=== PATIENT | female | born 1970 | race Caucasian/White ===

== ENCOUNTER 2018-04-21 14:56 | Emergency (ER) | payer SELFPAY ==
[2018-04-21 15:42] LABS: Absolute Monocytes 0.6 K/uL (0.1-1.3); Basophils % 1.2 % (0-1.3); Eosinophils % 2.7 % (0-4.4); Hematocrit 51.4 % (36.0-45.0); Lymphocytes % 20.1 % (15.3-44.8); MCH 28.6 pg (27.0-35.0); MPV 10.1 fL (7.6-11.3); Monocytes % 6.1 % (3.3-12.3); RBC Red Blood Cell Count 5.91 M/uL (3.86-4.86)
[2018-04-21 15:52] LABS: Potassium 3.9 mEq/L (3.6-5.0)
[2018-04-21] MEDS ORDERED: METOPROLOL TARTRATE 5 MG/5 ML INJ IV ONE (15:55)
[2018-04-21 15:58] LABS: Albumin 4.1 g/dL (3.2-5.5); Bilirubin Direct 0.1 mg/dL (0-0.2); Bilirubin Total 0.3 mg/dL (0.3-1.2); Magnesium 1.9 mg/dL (1.8-2.5); Protein, Total 7.6 g/dL (6.0-8.3)
[2018-04-21 16:08] LABS: Protime INR 0.91
[2018-04-21 19:05] LABS: Urine Blood NEGATIVE (NEG); Urine Glucose NEGATIVE (NEG); Urine Protein TRACE (NEG); Urine pH 5.5 (5.0-7.0)
--- NOTE | 2018-04-21 19:22 | EDPHYS ---
Physician Documentation [facility] Name: Leslye Kelley Age: 47 yrs Sex: Female : 1970 Arrival Date: 04/21/2018 Time: 15:02 Bed 2 Private MD: ED Physician Terry Kelly RIBBON WINDER: 04/21 15:13 LMP N/A - Hysterectomy tw2 Historical: - Allergies: 15:12 Phenergan; tw2 - Home Meds: 15:12 Contrave 8-90 mg oral TbER 2 tabs 2 times per day [Active]; tw2 - PMHx: 15:12 Diabetes - NIDDM; Hypertension; tw2 - PSHx: 15:12 cervix; Hysterectomy; Appendectomy; Cholecystectomy; colon; tw2 - Immunization history:: Adult Immunizations up to date. - Social history:: Smoking status: Patient uses tobacco products, smokes one pack cigarettes per day. - Ebola Screening: : Patient denies travel to an Ebola-affected area in the 21 days before illness onset. Vital Signs: 15:08 BP 201 / 99; Pulse 83; Resp 17; Temp 97.4(TE); Pulse Ox 91% on R/A; Weight 86.18 kg tw2 (R); Height 5 ft. 0 in. (152.40 cm); Pain 10/10; 15:15 BP 173 / 87; Pulse 68; Resp 17; Pulse Ox 96% on 2 lpm NC; tw2 15:26 BP 169 / 87; Pulse 77; Resp 16; Pulse Ox 97% on 2 lpm NC; tw2 15:30 BP 164 / 93; Pulse 72; Resp 14; Pulse Ox 96% on 2 lpm NC; tw2 15:45 BP 123 / 100; Pulse 74; Resp 17; Pulse Ox 96% on R/A; tw2 16:02 BP 163 / 81; Pulse 67; Resp 21; Pulse Ox 95% on 2 lpm NC; tw2 16:06 BP 154 / 75; Pulse 70; Resp 16; Pulse Ox 96% on R/A; tw2 16:27 BP 140 / 86; Pulse 73; Resp 24; Pulse Ox 95% on 2 lpm NC; tw2 17:30 BP 143 / 84; Pulse 73; Resp 16; Pulse Ox 96% on R/A; tw2 18:41 BP 162 / 82; Pulse 77; Resp 21; Pulse Ox 96% on R/A; tw2 19:04 BP 156 / 92; Pulse 72; Resp 18; Pulse Ox 92% ; aa1 15:08 Body Mass Index 37.11 (86.18 kg, 152.40 cm) tw2 15:08 pt placed on 2L nc at 2 L will continue to monitor, pt at 96% at this time. tw2 15:15 provider notified of VS at this time, HOLD Lopressor per Dr. Kelly, will continue to tw2 monitor MDM: 15:06 Patient medically screened. 04/21 15:11 Order name: Basic Metabolic Panel; Complete Time: 16:09 04/21 15:11 Order name: CBC with Diff; Complete Time: 16:09 04/21 15:11 Order name: LFT's; Complete Time: 16:09 04/21 15:11 Order name: Magnesium; Complete Time: 16:09 04/21 15:11 Order name: PT-INR; Complete Time: 16:09 04/21 15:11 Order name: Troponin (emerg Dept Use Only); Complete Time: 16:09 04/21 15:11 Order name: XRAY Chest (1 view) 04/21 15:11 Order name: EKG; Complete Time: 15:12 04/21 15:11 Order name: D-Dimer; Complete Time: 16:09 04/21 17:49 Order name: EKG Electrocardiogram [facility] 04/21 18:11 Order name: Troponin (emerg Dept Use Only); Complete Time: 19:20 04/21 18:41 Order name: Urine Dipstick--Ancillary (enter results); Complete Time: 19:20 04/21 18:41 Order name: Urine --Ancillary (enter results); Complete Time: 19:20 04/21 15:11 Order name: Cardiac monitoring; Complete Time: 15:14 04/21 15:11 Order name: EKG - Nurse/Tech; Complete Time: 15:14 04/21 15:11 Order name: IV Saline Lock; Complete Time: 15:14 04/21 15:11 Order name: Labs collected and sent; Complete Time: 15:14 04/21 15:11 Order name: O2 Per Protocol; Complete Time: 15:14 04/21 15:11 Order name: O2 Sat Monitoring; Complete Time: 15:14 04/21 15:11 Order name: Urine Dipstick-Ancillary (obtain specimen); Complete Time: 18:40 Administered Medications: 15:45 Drug: Lopressor 5 mg Route: IVP; Site: right antecubital; tw2 16:06 Follow up: BP 154 / 75; Pulse 70 bpm; Resp 16 bpm; Pulse Ox 96% RA; Response: No tw2 adverse reaction; Blood pressure is lowered Disposition: 04/21/18 19:21 Discharged to Home. Impression: Chest pain, unspecified. - Condition is Stable. - Discharge Instructions: Nonspecific Chest Pain, Managing Your High Blood Pressure. - Medication Reconciliation Form, Thank You Letter, Antibiotic Education, Prescription Opioid Use form. - Follow up: Private Physician; When: 2 - 3 days; Reason: Re-evaluation by your physician. Signatures: Dispatcher [employer] EDOlga Mccormick RN RN tw2 Terry Kelly MD MD Zane Roche RN RN mg2 Corrections: (The following items were deleted from the chart) 19:31 19:21 04/21/2018 19:21 Discharged to Home. Impression: Chest pain, unspecified. mg2 Condition is Stable. Forms are Medication Reconciliation Form, Thank You Letter, Antibiotic Education, Prescription Opioid Use. Follow up: Private Physician; When: 2 - 3 days; Reason: Re-evaluation by your physician.
--- NOTE | 2018-04-21 19:22 | ER ---
Nurse's Notes [facility] Name: Leslye Kelley Age: 47 yrs Sex: Female : 1970 Arrival Date: 04/21/2018 Time: 15:02 Bed 2 Private MD: Diagnosis: Chest pain, unspecified Presentation: 04/21 15:06 Presenting complaint: Patient states: I went to take a nap today, i always take a nap tw2 and the chest pain started about an hour ago and my left arm feels heavy. Presenting complaint: Patient states: i did take 2 aspirin. Transition of care: patient was not received from another setting of care. Onset of symptoms was April 21, 2018. Risk Assessment: Do you want to hurt yourself or someone else? Patient reports no desire to harm self or others. Initial Sepsis Screen: Does the patient meet any 2 criteria? No. Patient's initial sepsis screen is negative. Does the patient have a suspected source of infection? No. Patient's initial sepsis screen is negative. Care prior to arrival: None. 15:06 Method Of Arrival: Wheelchair tw2 15:06 Acuity: ANDRZEJ 3 tw2 SIZE STAMPER: 15:13 LMP N/A - Hysterectomy tw2 Historical: - Allergies: 15:12 Phenergan; tw2 - Home Meds: 15:12 Contrave 8-90 mg oral TbER 2 tabs 2 times per day [Active]; tw2 - PMHx: 15:12 Diabetes - NIDDM; Hypertension; tw2 - PSHx: 15:12 cervix; Hysterectomy; Appendectomy; Cholecystectomy; colon; tw2 20:51 Angioplasty; gs - Immunization history:: Adult Immunizations up to date. - Social history:: Smoking status: Patient uses tobacco products, smokes one pack cigarettes per day. - Ebola Screening: : Patient denies travel to an Ebola-affected area in the 21 days before illness onset. Screenin:13 Abuse screen: Denies threats or abuse. Nutritional screening: No deficits noted. tw2 Tuberculosis screening: No symptoms or risk factors identified. Fall Risk None identified. Assessment: 15:12 General: Appears uncomfortable, obese, Behavior is anxious. Pain: Complains of pain in tw2 chest Pain radiates to left arm. Neuro: Level of Consciousness is awake, alert, obeys commands, Oriented to person, place, time, situation. Cardiovascular: Reports chest pain, Heart tones S1 S2 Capillary refill < 3 seconds Patient's skin is warm and dry. Respiratory: Airway is patent Respiratory effort is even, unlabored, Respiratory pattern is regular, symmetrical, Breath sounds are clear bilaterally. GI: Abdomen is round non-distended, obese, Bowel sounds present X 4 quads. : No signs and/or symptoms were reported regarding the genitourinary system. EENT: No signs and/or symptoms were reported regarding the EENT system. Derm: Skin is intact, is healthy with good turgor, Skin temperature is warm. Musculoskeletal: Range of motion: intact in all extremities. 15:45 Reassessment: per provider Dr. Kelly, can give Lopressor at this time. tw2 16:06 Reassessment: Patient appears in no apparent distress at this time. Patient and/or tw2 family updated on plan of care and expected duration. Pain level reassessed. Patient is alert, oriented x 3, equal unlabored respirations, skin warm/dry/pink. 17:40 Reassessment: Patient appears in no apparent distress at this time. Patient and/or tw2 family updated on plan of care and expected duration. Pain level reassessed. Patient is alert, oriented x 3, equal unlabored respirations, skin warm/dry/pink. 18:42 Reassessment: Patient appears in no apparent distress at this time. Patient and/or tw2 family updated on plan of care and expected duration. Pain level reassessed. Patient is alert, oriented x 3, equal unlabored respirations, skin warm/dry/pink. Vital Signs: 15:08 BP 201 / 99; Pulse 83; Resp 17; Temp 97.4(TE); Pulse Ox 91% on R/A; Weight 86.18 kg tw2 (R); Height 5 ft. 0 in. (152.40 cm); Pain 10/10; 15:15 BP 173 / 87; Pulse 68; Resp 17; Pulse Ox 96% on 2 lpm NC; tw2 15:26 BP 169 / 87; Pulse 77; Resp 16; Pulse Ox 97% on 2 lpm NC; tw2 15:30 BP 164 / 93; Pulse 72; Resp 14; Pulse Ox 96% on 2 lpm NC; tw2 15:45 BP 123 / 100; Pulse 74; Resp 17; Pulse Ox 96% on R/A; tw2 16:02 BP 163 / 81; Pulse 67; Resp 21; Pulse Ox 95% on 2 lpm NC; tw2 16:06 BP 154 / 75; Pulse 70; Resp 16; Pulse Ox 96% on R/A; tw2 16:27 BP 140 / 86; Pulse 73; Resp 24; Pulse Ox 95% on 2 lpm NC; tw2 17:30 BP 143 / 84; Pulse 73; Resp 16; Pulse Ox 96% on R/A; tw2 18:41 BP 162 / 82; Pulse 77; Resp 21; Pulse Ox 96% on R/A; tw2 19:04 BP 156 / 92; Pulse 72; Resp 18; Pulse Ox 92% ; aa1 15:08 Body Mass Index 37.11 (86.18 kg, 152.40 cm) tw2 15:08 pt placed on 2L nc at 2 L will continue to monitor, pt at 96% at this time. tw2 15:15 provider notified of VS at this time, HOLD Lopressor per Dr. Kelly, will continue to tw2 monitor ED Course: 15:02 Patient arrived in ED. bd 15:02 Olga Stubsb, RN is Primary Nurse. tw2 15:06 Terry Kelly MD is Attending Physician. gs 15:08 Triage completed. tw2 15:09 Arm band placed on. tw2 15:09 Bed in low position. Adult w/ patient. food processing plant manager on. Pulse ox on. NIBP on. Warm tw2 blanket given. 15:14 No provider procedures requiring assistance completed. Inserted saline lock: 20 gauge tw2 in right antecubital area, using aseptic technique. ,using aseptic technique. per Emiliano Brumfield Blood collected. 15:22 Initial lab(s) drawn, by me, held in ED. Inserted saline lock: 20 gauge antecubital mh5 area, using aseptic technique. Blood collected. 15:23 Patient has correct armband on for positive identification. Placed in gown. Call light mh5 in reach. Side rails up X 1. Side rails up X2. Adult w/ patient. Warm blanket given. food processing plant manager on. Pulse ox on. NIBP on. 15:38 XRAY Chest (1 view) In Process Unspecified. EDMS 15:42 X-ray completed. Portable x-ray completed in exam room. Patient tolerated procedure bb2 well. 17:15 EKG done, by medical technologist clinical. reviewed by Terry Kelyl MD Repeat EKG. at1 18:40 Troponin (emerg Dept Use Only) Sent. tw2 19:00 Report given to GERARDO Mitchell. tw2 19:30 IV discontinued, intact, bleeding controlled, No redness/swelling at site. Pressure mg2 dressing applied. Administered Medications: 15:45 Drug: Lopressor 5 mg Route: IVP; Site: right antecubital; tw2 16:06 Follow up: BP 154 / 75; Pulse 70 bpm; Resp 16 bpm; Pulse Ox 96% RA; Response: No tw2 adverse reaction; Blood pressure is lowered Outcome: 19:21 Discharge ordered by MD. gs 19:30 Discharged to home ambulatory, with family. mg2 19:30 Condition: stable 19:30 Discharge instructions given to patient, family, Instructed on discharge instructions, follow up and referral plans. Demonstrated understanding of instructions, follow-up care. 19:31 Patient left the ED. mg2 Signatures: Dispatcher [employer] EDMS Griselda Randolph Alissa, RN RN aa1 Michelle nickerson, sander wooden pencils EKG Tat1 Olga Stubbs RN RN tw2 Belinda Mckeon 5 Terry Kelly MD MD [facility] [place] [id number] Zane Roche RN RN mg2 Corrections: (The following items were deleted from the chart) 15:26 15:15 BP 173 / 87; Pulse 68bpm; Resp 17bpm; Pulse Ox 96% 2 lpm Nasal Cannula; tw2 tw2
--- NOTE | 2018-04-21 19:41 | RAD REPORT ---
EXAM DESCRIPTION: Luiz Single View04/21/2018 3:45 pm CLINICAL HISTORY: Chest pain COMPARISON: none FINDINGS: The lungs appear clear of acute infiltrate. The heart is borderline enlarged IMPRESSION: No acute abnormalities displayed
[2018-04-21 20:44] VITALS: TEMP 97.4
[2018-04-21 20:56] VITALS: BP 156/92; O2SAT 92
--- NOTE | 2018-04-22 07:41 | EKG ---
Test Date: 2018-04-21 Test Time: 17:12:22 Instructor Bridge: ROSELINE MEASUREMENT RESULTS: Intervals: Rate: 64 NV: 154 QRSD: 92 QT: 426 QTc: 439 [place]: P: 51 NV: 154 QRS: 86 T: 54 INTERPRETIVE STATEMENTS: Normal sinus rhythm Normal ECG Compared to ECG 04/21/2018 15:03:04 Sinus arrhythmia no longer present Electronically Signed On 04-22-18 07:40:38 CDT by Clarke Mendez
--- NOTE | 2018-04-22 07:43 | EKG ---
Test Date: 2018-04-21 Test Time: 15:03:04 Director Of Government Sales: ROSELINE MEASUREMENT RESULTS: Intervals: Rate: 77 [place]: 140 QRSD: 94 QT: 388 QTc: 439 [place]: P: 45 [place]: 140 QRS: 86 T: 50 INTERPRETIVE STATEMENTS: Normal sinus rhythm with sinus arrhythmia Normal ECG Compared to ECG 11/03/2017 12:36:53 Myocardial infarct finding no longer present Electronically Signed On 04-22-18 07:42:01 CDT by Clarke Mendez
== END 2018-04-21 19:31 | disposition home or self-care (01) ==
LOC: ER 14:56
DX: R07.9 Chest pain, unspecified (principal); E11.9 Type 2 diabetes mellitus without complications; I10 Essential (primary) hypertension; F17.210 Nicotine dependence, cigarettes, uncomplicated
CPT/HCPCS: 36415; 71045; 80048; 80076; 81003; 81025; 83735; 84484; 85025; 85379; 85610; 93005; 96374; 99285

== ENCOUNTER 2018-09-11 11:45 | Emergency (ER) | payer SELFPAY ==
--- NOTE | 2018-09-11 11:57 | ER ---
Nurse's Notes [facility] Name: Leslye Kelley Age: 47 yrs Sex: Female : 1970 Arrival Date: 09/11/2018 Time: 11:47 Bed 5 Private MD: Diagnosis: Zoster [herpes zoster] Presentation: 09/11 11:53 Presenting complaint: Patient states: Pain to left shoulder and upper back for 2 weeks aj and vesicular rash to left shoulder for 3 days. Transition of care: patient was not received from another setting of care. Onset of symptoms was August 27, 2018. Risk Assessment: Do you want to hurt yourself or someone else? Patient reports no desire to harm self or others. Initial Sepsis Screen: Does the patient meet any 2 criteria? No. Patient's initial sepsis screen is negative. Does the patient have a suspected source of infection? No. Patient's initial sepsis screen is negative. Care prior to arrival: None. 11:53 Method Of Arrival: Ambulatory aj 11:53 Acuity: ANDRZEJ 2 aj Triage Assessment: 11:55 General: Appears in no apparent distress. uncomfortable, Behavior is calm, cooperative, aj appropriate for age. Pain: Complains of pain in left scapular area, left subscapular area and left mid back. Neuro: Level of Consciousness is awake, alert, obeys commands, Oriented to person, place, time, situation, Appropriate for age. Respiratory: Airway is patent Respiratory effort is even, unlabored, Respiratory pattern is regular, symmetrical. Derm: Skin is intact, is healthy with good turgor, Skin is pink, warm \\T\\ dry. normal, Rash noted that is vesicular, on left scapular area. DIRECTOR CALL: 11:55 LMP N/A - Hysterectomy aj Historical: - Allergies: 11:55 Phenergan; aj 11:55 tramadol; aj - Home Meds: 11:55 None [Active]; aj - PMHx: 11:55 Hypertension; Diabetes - NIDDM; aj - PSHx: 11:55 cervix; Hysterectomy; Appendectomy; Cholecystectomy; colon; Angioplasty; aj - Immunization history:: Adult Immunizations up to date. - Social history:: Smoking status: Patient/guardian denies using tobacco. - Ebola Screening: : Patient negative for fever greater than or equal to 101.5 degrees Fahrenheit, and additional compatible Ebola Virus Disease symptoms Patient denies exposure to infectious person Patient denies travel to an Ebola-affected area in the 21 days before illness onset No symptoms or risks identified at this time. Screenin:07 Abuse screen: Denies threats or abuse. Nutritional screening: No deficits noted. tw2 Tuberculosis screening: No symptoms or risk factors identified. Fall Risk None identified. Assessment: 12:00 General: Appears in no apparent distress. Behavior is calm, cooperative. Neuro: Level tw2 of Consciousness is awake, alert, obeys commands, Oriented to person, place, time, situation. Cardiovascular: Denies chest pain, shortness of breath, Heart tones S1 S2 Capillary refill < 3 seconds. Respiratory: Airway is patent Respiratory effort is even, unlabored, Respiratory pattern is regular, symmetrical, Breath sounds are clear bilaterally. GI: No signs and/or symptoms were reported involving the gastrointestinal system. : No signs and/or symptoms were reported regarding the genitourinary system. EENT: No signs and/or symptoms were reported regarding the EENT system. Derm: Reports pain "i have pain from the sores on my back". Musculoskeletal: Range of motion: intact in all extremities. 12:14 Reassessment: Patient appears in no apparent distress at this time. No changes from tw2 previously documented assessment. Patient and/or family updated on plan of care and expected duration. Pain level reassessed. Patient is alert, oriented x 3, equal unlabored respirations, skin warm/dry/pink. Vital Signs: 11:55 BP 190 / 100; Pulse 103; Resp 17; Temp 98.5; Pulse Ox 95% on R/A; Weight 87.54 kg; aj Height 5 ft. 0 in. (152.40 cm); 12:07 BP 160 / 88; Pulse 94; Resp 17; Pulse Ox 96% on R/A; tw2 11:55 Body Mass Index 37.69 (87.54 kg, 152.40 cm) aj ED Course: 11:47 Patient arrived in ED. aj 11:48 Lala Abad FNP-C is [facility]. snw 11:48 Toi Miller MD is Attending Physician. snw 11:50 Bed in low position. Call light in reach. Pulse ox on. NIBP on. tw2 11:54 Triage completed. aj 11:55 Arm band placed on left wrist. Patient placed in an exam room. noel 11:57 Olga Stubbs, RN is Primary Nurse. tw2 12:14 No provider procedures requiring assistance completed. Patient did not have IV access tw2 during this emergency room visit. Administered Medications: 12:00 Drug: predniSONE 40 mg Route: PO; tw2 12:00 Drug: cloNIDine 0.1 mg Route: PO; tw2 12:00 Drug: Pepcid 20 mg Route: PO; tw2 Outcome: 11:56 Discharge ordered by . alisia 12:14 Discharged to home ambulatory. tw2 12:14 Condition: stable 12:14 Discharge instructions given to patient, Instructed on discharge instructions, follow up and referral plans. no drinking with medication, no driving heavy equipment, medication usage, Demonstrated understanding of instructions, follow-up care, medications, Prescriptions given X 3. 12:15 Patient left the ED. tw2 Signatures: Michelle Garza, RN RN Lala Jaquez, RADIO TELEVISION TECHNICAL DIRECTOR-C RADIO TELEVISION TECHNICAL DIRECTOR-Csnw Olga Stubbs, RN RN tw2
--- NOTE | 2018-09-11 11:57 | EDPHYS ---
Physician Documentation [facility] Name: Leslye Kelley Age: 47 yrs Sex: Female : 1970 Arrival Date: 09/11/2018 Time: 11:47 Bed 5 Private MD: ED Physician Toi Miller HPI: 09/11 12:17 This 47 yrs old Female presents to ER via Ambulatory with complaints of pain snw toleft shoulder and upper back. 12:17 The patient's rash thought to be caused by an unknown cause. The rash is located on the snw left scapular area. The rash can be described as erythematous, vesicular, painful. Onset: The symptoms/episode began/occurred 3 day(s) ago, and became persistent. Associated signs and symptoms: Pertinent positives: Pain left upper back, scapula, axilla x 1 week. Severity of symptoms: At their worst the symptoms were moderate in the emergency department the symptoms are unchanged. Treatment given at home: OTC lotion/cream. The patient has not experienced similar symptoms in the past. The patient has not recently seen a physician. 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 - Social history:: Smoking status: Patient/guardian denies using tobacco. - Ebola Screening: : Patient negative for fever greater than or equal to 101.5 degrees Fahrenheit, and additional compatible Ebola Virus Disease symptoms Patient denies exposure to infectious person Patient denies travel to an Ebola-affected area in the 21 days before illness onset No symptoms or risks identified at this time. ROS: 12:17 Constitutional: Negative for fever, chills, and weight loss, Eyes: Negative for injury, snw pain, redness, and discharge, ENT: Negative for injury, pain, and discharge, Neck: Negative for injury, pain, and swelling, Cardiovascular: Negative for chest pain, palpitations, and edema, Respiratory: Negative for shortness of breath, cough, wheezing, and pleuritic chest pain, Abdomen/GI: Negative for abdominal pain, nausea, vomiting, diarrhea, and constipation, Back: Negative for injury and pain, : Negative for injury, bleeding, discharge, and swelling, Neuro: Negative for headache, weakness, numbness, tingling, and seizure, Psych: Negative for depression, anxiety, suicide ideation, homicidal ideation, and hallucinations. 12:17 MS/extremity: Positive for decreased range of motion, tenderness, of the left mid back and left subscapular area and left scapular area. 12:17 Skin: Positive for rash, of the left scapular area. Exam: 12:16 Constitutional: This is a well developed, well nourished patient who is awake, alert, snw and in no acute distress. Head/Face: Normocephalic, atraumatic. Eyes: Pupils equal round and reactive to light, extra-ocular motions intact. Lids and lashes normal. Conjunctiva and sclera are non-icteric and not injected. Cornea within normal limits. Periorbital areas with no swelling, redness, or edema. ENT: Nares patent. No nasal discharge, no septal abnormalities noted. Tympanic membranes are normal and external auditory canals are clear. Oropharynx with no redness, swelling, or masses, exudates, or evidence of obstruction, uvula midline. Mucous membranes moist. Neck: Trachea midline, no thyromegaly or masses palpated, and no cervical lymphadenopathy. Supple, full range of motion without nuchal rigidity, or vertebral point tenderness. No Meningismus. Chest/axilla: Normal chest wall appearance and motion. Nontender with no deformity. No lesions are appreciated. Cardiovascular: Regular rate and rhythm with a normal S1 and S2. No gallops, murmurs, or rubs. Normal PMI, no JVD. No pulse deficits. Respiratory: Lungs have equal breath sounds bilaterally, clear to auscultation and percussion. No rales, rhonchi or wheezes noted. No increased work of breathing, no retractions or nasal flaring. Abdomen/GI: Soft, non-tender, with normal bowel sounds. No distension or tympany. No guarding or rebound. No evidence of tenderness throughout. Back: No spinal tenderness. No costovertebral tenderness. Full range of motion. MS/ Extremity: Pulses equal, no cyanosis. Neurovascular intact. Full, normal range of motion. Neuro: Awake and alert, GCS 15, oriented to person, place, time, and situation. Cranial nerves II-XII grossly intact. Motor strength 5/5 in all extremities. Sensory grossly intact. Cerebellar exam normal. Normal gait. Psych: Awake, alert, with orientation to person, place and time. Behavior, mood, and affect are within normal limits. 12:16 Skin: Appearance: normal except for affected area, Color: Temperature: normal temperature, Moisture: normal moisture, consistent with zoster, on the left scapular area. Vital Signs: 11:55 BP 190 / 100; Pulse 103; Resp 17; Temp 98.5; Pulse Ox 95% on R/A; Weight 87.54 kg; aj Height 5 ft. 0 in. (152.40 cm); 12:07 BP 160 / 88; Pulse 94; Resp 17; Pulse Ox 96% on R/A; tw2 11:55 Body Mass Index 37.69 (87.54 kg, 152.40 cm) aj MDM: 11:48 Patient medically screened. snw 12:15 Data reviewed: vital signs, nurses notes. Data interpreted: Pulse oximetry: on room air snw is 96 %. Interpretation: normal. Counseling: I had a detailed discussion with the patient and/or guardian regarding: the historical points, exam findings, and any diagnostic results supporting the discharge/admit diagnosis, the presence of at least one elevated blood pressure reading (>120/80) during this emergency department visit, the need for outpatient follow up, to return to the emergency department if symptoms worsen or persist or if there are any questions or concerns that arise at home. Special discussion: I have referred the patient to see his PCP for further evaluation of high blood pressure. Based on the history and exam findings, there is no indication for further emergent testing or inpatient evaluation. I discussed with the patient/guardian the need to see the primary care provider for further evaluation of the symptoms. Administered Medications: 12:00 Drug: predniSONE 40 mg Route: PO; tw2 12:00 Drug: cloNIDine 0.1 mg Route: PO; tw2 12:00 Drug: Pepcid 20 mg Route: PO; tw2 Disposition: 13:40 Co-signature as Attending Physician, Toi Miller MD. rn Disposition: 09/11/18 11:56 Discharged to Home. Impression: Zoster [herpes zoster]. - Condition is Stable. - Discharge Instructions: Hypertension, Shingles. - Prescriptions for Tylenol- Codeine #3 300-30 mg Oral Tablet - take 2 tablets by ORAL route every 6 hours As needed; 15 tablet. Prednisone 20 mg Oral Tablet - take 2 tablet by ORAL route once daily for 5 days; 10 tablet. Pepcid 20 mg Oral Tablet - take 1 tablet by ORAL route once daily; 20 tablet. - Medication Reconciliation Form, Thank You Letter, Antibiotic Education, Prescription Opioid Use form. - Follow up: Private Physician; When: 5 - 6 days; Reason: Recheck today's complaints, Continuance of care, Re-evaluation by your physician. Follow up: Emergency Department; When: As needed; Reason: Worsening of condition. Signatures: Michelle Garza RN RN Lala Jaquez, MATTHEW-C AMPOULE WASHING MACHINE OPERATOR-Csnw Toi Miller MD MD rn Wise, Tara, RN RN tw2 Corrections: (The following items were deleted from the chart) 12:15 11:56 09/11/2018 11:56 Discharged to Home. Impression: Zoster [herpes zoster]. tw2 Condition is Stable. Forms are Medication Reconciliation Form, Thank You Letter, Antibiotic Education, Prescription Opioid Use. Follow up: Private Physician; When: 5 - 6 days; Reason: Recheck today's complaints, Continuance of care, Re-evaluation by your physician. Follow up: Emergency Department; When: As needed; Reason: Worsening of condition. snw
[2018-09-11] MEDS ORDERED: FAMOTIDINE 20 MG TAB ONE (12:05)
[2018-09-11] MEDS ORDERED: predniSONE 20 MG TAB ONE (12:05)
[2018-09-11] MEDS ORDERED: cloNIDine HCl 0.1 MG TAB ONE (12:05)
[2018-09-11 12:19] VITALS: TEMP 98.5
[2018-09-11 12:20] VITALS: BP 160/88; O2SAT 96
== END 2018-09-11 12:15 | disposition home or self-care (01) ==
LOC: ER 11:45
DX: B02.9 Zoster without complications (principal); I10 Essential (primary) hypertension; Z88.6 Allergy status to analgesic agent; Z88.8 Allergy status to other drugs, medicaments and biological substances
CPT/HCPCS: 99283; J7512

== ENCOUNTER 2019-03-06 12:56 | Emergency (ER) | payer SELFPAY ==
[2019-03-06] MEDS ORDERED: METOPROLOL TARTRATE 5 MG/5 ML INJ IV ONE (13:23)
[2019-03-06 13:30] LABS: Absolute Lymphocytes (CBC) 2.2 K/uL (0.7-4.9); Absolute Monocytes 0.6 K/uL (0.1-1.3); Absolute Neutrophil 6.1 K/uL (1.8-8.0); Basophils % 1.3 % (0-1.3); Eosinophils % 1.3 % (0-4.4); Hematocrit 53.4 % (36.0-45.0); Lymphocytes % 23.9 % (15.3-44.8); MPV 9.5 fL (7.6-11.3); Monocytes % 6.9 % (3.3-12.3); RBC Red Blood Cell Count 6.33 M/uL (3.86-4.86)
[2019-03-06 13:33] LABS: Protime INR 0.95
[2019-03-06 13:56] LABS: ALT/SGPT 30 U/L (12-78); AST/SGOT 18 U/L (15-37); Alkaline Phosphatase 99 U/L (45-117); BUN Blood Urea Nitrogen 8 mg/dL (7-18); Bicarbonate 29 mmol/L (21-32); Bilirubin Direct 0.1 mg/dL (0-0.2); Bilirubin Total 0.5 mg/dL (0.2-1.0); Glucose Level 154 mg/dL (74-106); NT PRO-BNP 580 pg/mL (<125); Protein, Total 8.4 g/dL (6.4-8.2); Sodium Level 139 mmol/L (136-145); Troponin (Emerg Dept Use Only) < 0.02 ng/mL (0.0-0.045)
--- NOTE | 2019-03-06 14:21 | RAD REPORT ---
EXAM DESCRIPTION: CT - Head Brain Wo Cont - 03/06/2019 1:33 pm CLINICAL HISTORY: Hypertension, visual changes COMPARISON: None. TECHNIQUE: Axial 5 mm thick images of the head were obtained without IV contrast. All CT scans are performed using dose optimization technique as appropriate and may include automated exposure control or mA/KV adjustment according to patient size. FINDINGS: No intracranial hemorrhage, mass, edema or shift of mid-line structures. No acute infarcti on changes seen. No abnormal extra-axial fluid collections. Ventricles are normal. Mastoid air cells and visualized portions of the paranasal sinuses are clear. No acute bony findings. IMPRESSION: Negative non-contrast CT head examination.
--- NOTE | 2019-03-06 14:22 | RAD REPORT ---
EXAM DESCRIPTION: RAD - Chest Single View - 03/06/2019 1:30 pm CLINICAL HISTORY: Cough, chest pain, chest pressure COMPARISON: April 2018 TECHNIQUE: AP portable chest image was obtained 1327 hours . FINDINGS: No focal mass consolidation. Heart, vasculature and lung markings are similar to compariso n. Overall increase in density across the lower lung potts believed to be the affects of portable te [place] and body habitus. Heart and vasculature are normal. No measurable pleural effusion and no pne umothorax. No acute bony abnormality seen. No acute aortic findings suspected. IMPRESSION: No acute cardiopulmonary process. No significant interval change.
--- NOTE | 2019-03-06 15:10 | ER ---
Nurse's Notes [facility] Name: Leslye Kelley Age: 48 yrs Sex: Female : 1970 Arrival Date: 03/06/2019 Time: 12:57 Bed 7 Private MD: Diagnosis: Hypertension - poorly controlled Presentation: 03/06 13:08 Presenting complaint: Patient states: Cough for one weeks, dizzy and high BP at home la1 (190/120), chest pressure and flickering in left eye. Transition of care: patient was not received from another setting of care. Onset of symptoms was March 06, 2019. Risk Assessment: Do you want to hurt yourself or someone else? Patient reports no desire to harm self or others. Initial Sepsis Screen: Does the patient meet any 2 criteria? No. Patient's initial sepsis screen is negative. Does the patient have a suspected source of infection? No. Patient's initial sepsis screen is negative. Care prior to arrival: None. 13:08 Method Of Arrival: Ambulatory la1 13:08 Acuity: ANDRZEJ 2 la1 Historical: - Allergies: 13:08 Phenergan; la1 13:08 tramadol; la1 - Home Meds: 13:08 None [Active]; la1 - PMHx: 13:08 Diabetes - NIDDM; Hypertension; colorectal and cervical cancer; la1 - PSHx: 13:08 Appendectomy; Cholecystectomy; cardiac cath; la1 - Immunization history:: Adult Immunizations up to date. - Social history:: Smoking status: Patient uses tobacco products, smokes one pack cigarettes per day. - Ebola Screening: : No symptoms or risks identified at this time. Screenin:26 Abuse screen: Denies threats or abuse. Nutritional screening: No deficits noted. la1 Tuberculosis screening: No symptoms or risk factors identified. Fall Risk None identified. Assessment: 13:25 General: Appears in no apparent distress. Behavior is calm, cooperative. Pain: Denies la1 pain. Neuro: Level of Consciousness is awake, alert, obeys commands, Oriented to person, place, time, situation, Moves all extremities. Full function Gait is steady, Speech is normal, Facial symmetry appears normal, Pupils are PERRLA, Reports dizziness. Cardiovascular: Capillary refill < 3 seconds Patient's skin is warm and dry. Respiratory: Airway is patent Respiratory effort is even, unlabored, Respiratory pattern is regular, symmetrical, Breath sounds with wheezes bilaterally. the patient has mild shortness of breath. GI: Abdomen is non-distended, obese, Bowel sounds present X 4 quads. : No signs and/or symptoms were reported regarding the genitourinary system. 14:09 Reassessment: Patient appears in no apparent distress at this time. No changes from la1 previously documented assessment. Patient and/or family updated on plan of care and expected duration. Pain level reassessed. Patient states feeling better. Patient states symptoms have improved. 15:10 Reassessment: Patient appears in no apparent distress at this time. No changes from la1 previously documented assessment. Patient and/or family updated on plan of care and expected duration. Pain level reassessed. Patient is alert, oriented x 3, equal unlabored respirations, skin warm/dry/pink. Vital Signs: 13:06 BP 211 / 118; Pulse 99; Resp 18; Temp 97.9; Pulse Ox 91% on R/A; Weight 81.65 kg; la1 Height 5 ft. (152.40 cm); 13:40 BP 163 / 87; Pulse 76; Resp 22; Pulse Ox 90% on R/A; la1 15:09 BP 151 / 83; Pulse 75; Resp 16; Pulse Ox 98% on R/A; la1 13:06 Body Mass Index 35.15 (81.65 kg, 152.40 cm) la1 ED Course: 12:57 Patient arrived in ED. mr 12:58 Juanito Rose MD is Attending Physician. kdr 13:05 Lan Mulligan RN is Primary Nurse. la1 13:09 Triage completed. la1 13:09 Arm band placed on right wrist. la1 13:26 Call light in reach. Side rails up X 1. elastic yarn twister on. Pulse ox on. NIBP on. la1 13:26 No provider procedures requiring assistance completed. Inserted saline lock: 20 gauge la1 in right antecubital area, using aseptic technique. Blood collected. 13:30 XRAY Chest (1 view) In Process Unspecified. EDMS 13:33 CT Head Brain wo Cont In Process Unspecified. EDMS 15:22 IV discontinued, intact, bleeding controlled, No redness/swelling at site. Pressure la1 dressing applied. Administered Medications: 13:25 Drug: Lopressor 5 mg Route: IVP; Site: right antecubital; la1 15:11 Follow up: Response: No adverse reaction la1 15:11 Not Given (Physician Discretion): Lisinopril 20 mg PO once la1 Outcome: 15:10 Discharge ordered by . kdr 15:21 Discharged to home ambulatory. la1 15:21 Condition: stable 15:21 Discharge instructions given to patient, Instructed on discharge instructions, follow up and referral plans. medication usage, Demonstrated understanding of instructions, follow-up care, medications, Prescriptions given X 1. 15:22 Patient left the ED. la1 Signatures: Dispatcher [employer] EDMS Juanito Rose MD MD kdr Rivera, Mary mr Attema, Lee RN RN la1
--- NOTE | 2019-03-06 15:11 | EDPHYS ---
Physician Documentation [facility] Name: Leslye Kelley Age: 48 yrs Sex: Female : 1970 Arrival Date: 03/06/2019 Time: 12:57 Bed 7 Private MD: ED Physician Juanito Rose HPI: 03/06 13:30 This 48 yrs old Female presents to ER via Ambulatory with complaints of kdr Dizziness, High Blood Pressure. 13:30 The patient presents with dizziness, lightheadedness. Onset: The symptoms/episode kdr began/occurred yesterday, last night. Context: occurred at home, occurred while the patient was at rest, Light activity. Modifying factors: The symptoms are alleviated by nothing, the symptoms are aggravated by nothing. Associated signs and symptoms: Pertinent positives: Noted that her BP was elevated 180s/190 s. last night and this morning. She also notes some flashing lights in her left eye. Severity of symptoms: At their worst the symptoms were mild in the emergency department the symptoms are unchanged. Patient's baseline: Neuro: alert and fully oriented, Motor: no deficits, Ambulation: walks without assistance, Speech: normal. The patient has not experienced similar symptoms in the past. The patient has not recently seen a physician, The patient had been on HTN and DM meds but her PCP took her off of all of her meds some time ago.. Historical: - Allergies: 13:08 Phenergan; la1 13:08 tramadol; la1 - Home Meds: 13:08 None [Active]; la1 - PMHx: 13:08 Diabetes - NIDDM; Hypertension; colorectal and cervical cancer; la1 - PSHx: 13:08 Appendectomy; Cholecystectomy; cardiac cath; la1 - Immunization history:: Adult Immunizations up to date. - Social history:: Smoking status: Patient uses tobacco products, smokes one pack cigarettes per day. - Ebola Screening: : No symptoms or risks identified at this time. ROS: 13:30 Constitutional: Negative for fever, chills, and weight loss, Eyes: Negative for injury, kdr pain, redness, and discharge, ENT: Negative for injury, pain, and discharge, Neck: Negative for injury, pain, and swelling, Cardiovascular: Negative for chest pain, palpitations, and edema - she does admit to mild chest pressure Respiratory: Negative for shortness of breath, cough, wheezing, and pleuritic chest pain, Back: Negative for injury and pain, : Negative for injury, bleeding, discharge, and swelling, MS/Extremity: Negative for injury and deformity, Skin: Negative for injury, rash, and discoloration, Psych: Negative for depression, anxiety, suicide ideation, homicidal ideation, and hallucinations, Allergy/Immunology: Negative for hives, rash, and allergies, Endocrine: Negative for neck swelling, polydipsia, polyuria, polyphagia, and marked weight changes, Hematologic/Lymphatic: Negative for swollen nodes, abnormal bleeding, and unusual bruising. 13:30 Abdomen/GI: Positive for nausea and vomiting, Once, Negative for diarrhea, constipation, abdominal cramps, abdominal distension, anorexia, dysphagia, hematemesis, black/tarry stool, rectal pain, rectal bleeding. 13:30 Neuro: Positive for Flashing spots in left eye - intermittent and mild. Exam: 13:30 Constitutional: This is a well developed, well nourished patient who is awake, alert, kdr and in no acute distress. Head/Face: Normocephalic, atraumatic. Eyes: Pupils equal round and reactive to light, extra-ocular motions intact. Lids and lashes normal. Conjunctiva and sclera are non-icteric and not injected. Cornea within normal limits. Periorbital areas with no swelling, redness, or edema. Neck: Trachea midline, no thyromegaly or masses palpated, and no cervical lymphadenopathy. Supple, full range of motion without nuchal rigidity, or vertebral point tenderness. No Meningismus. Chest/axilla: Normal chest wall appearance and motion. Nontender with no deformity. No lesions are appreciated. Cardiovascular: Regular rate and rhythm with a normal S1 and S2. No gallops, murmurs, or rubs. Normal PMI, no JVD. No pulse deficits. Respiratory: Lungs have equal breath sounds bilaterally, clear to auscultation and percussion. No rales, rhonchi or wheezes noted. No increased work of breathing, no retractions or nasal flaring. Abdomen/GI: Soft, non-tender, with normal bowel sounds. No distension or tympany. No guarding or rebound. No evidence of tenderness throughout. Back: No spinal tenderness. No costovertebral tenderness. Full range of motion. Skin: Warm, dry with normal turgor. Normal color with no rashes, no lesions, and no evidence of cellulitis. MS/ Extremity: Pulses equal, no cyanosis. Neurovascular intact. Full, normal range of motion. Neuro: Awake and alert, GCS 15, oriented to person, place, time, and situation. Cranial nerves II-XII grossly intact. Motor strength 5/5 in all extremities. Sensory grossly intact. Cerebellar exam normal. Normal gait. Psych: Awake, alert, with orientation to person, place and time. Behavior, mood, and affect are within normal limits. Vital Signs: 13:06 BP 211 / 118; Pulse 99; Resp 18; Temp 97.9; Pulse Ox 91% on R/A; Weight 81.65 kg; la1 Height 5 ft. (152.40 cm); 13:40 BP 163 / 87; Pulse 76; Resp 22; Pulse Ox 90% on R/A; la1 15:09 BP 151 / 83; Pulse 75; Resp 16; Pulse Ox 98% on R/A; la1 13:06 Body Mass Index 35.15 (81.65 kg, 152.40 cm) la1 MDM: 13:30 Data reviewed: vital signs, nurses notes, lab test result(s), radiologic studies. kdr Counseling: I had a detailed discussion with the patient and/or guardian regarding: the historical points, exam findings, and any diagnostic results supporting the discharge/admit diagnosis, lab results, radiology results. 15:10 Patient medically screened. [facility] 03/06 13:09 Order name: Basic Metabolic Panel; Complete Time: 14:31 [facility] 03/06 13:09 Order name: CBC with Diff kdr 03/06 13:09 Order name: LFT's; Complete Time: 14:31 kdr 03/06 13:09 Order name: Magnesium; Complete Time: 14:31 [facility] 03/06 13:09 Order name: NT PRO-BNP; Complete Time: 14:31 kdr 03/06 13:09 Order name: PT-INR; Complete Time: 14:31 [facility] 03/06 13:09 Order name: Troponin (emerg Dept Use Only); Complete Time: 14:31 [facility] 03/06 13:09 Order name: XRAY Chest (1 view); Complete Time: 14:31 [facility] 03/06 13:09 Order name: EKG; Complete Time: 13:10 kdr 03/06 13:09 Order name: Cardiac monitoring; Complete Time: 13: kdr 03/06 13:09 Order name: EKG - Nurse/Tech; Complete Time: : [facility] 03/06 13:09 Order name: CT Head Brain wo Cont; Complete Time: 14:31 kdr 03/06 13:09 Order name: IV Saline Lock; Complete Time: 13: kdr 03/06 13:09 Order name: Labs collected and sent; Complete Time: : kdr 03/06 13:09 Order name: O2 Per Protocol; Complete Time: : kdr 03/06 13:09 Order name: O2 Sat Monitoring; Complete Time: kdr Administered Medications: 13:25 Drug: Lopressor 5 mg Route: IVP; Site: right antecubital; la1 15:11 Follow up: Response: No adverse reaction la1 15:11 Not Given (Physician Discretion): Lisinopril 20 mg PO once la1 Disposition: 03/06/19 15:10 Discharged to Home. Impression: Hypertension - poorly controlled. - Condition is Stable. - Discharge Instructions: Hypertension. - Prescriptions for Metoprolol Tartrate 25 mg Oral Tablet - take 1 tablet by ORAL route 2 times per day with a meal; 40 tablet. - Medication Reconciliation Form, Thank You Letter form. - Follow up: Private Physician; When: 2 - 3 days; Reason: If symptoms return, Further diagnostic work-up, Recheck today's complaints, Continuance of care, Re-evaluation by your physician. - Problem is an acute exacerbation. - Symptoms have improved. Signatures: Dispatcher [employer] EDMI Juanito Rose MD MD kdr Lan Mulligan RN RN la1 Corrections: (The following items were deleted from the chart) 15:22 15:10 03/06/2019 15:10 Discharged to Home. Impression: Hypertension - poorly la1 controlled. Condition is Stable. Forms are Medication Reconciliation Form, Thank You Letter, Antibiotic Education, Prescription Opioid Use. Follow up: Private Physician; When: 2 - 3 days; Reason: If symptoms return, Further diagnostic work-up, Recheck today's complaints, Continuance of care, Re-evaluation by your physician. Problem is an acute exacerbation. Symptoms have improved. kdr
[2019-03-06 15:29] VITALS: TEMP 97.9
[2019-03-06 15:31] VITALS: BP 151/83; O2SAT 98
[2019-03-06 16:57] LABS: Platelet Estimate ADEQ
[2019-03-06 16:58] LABS: Blood Morphology Comment NOT SEEN (NOT SEEN); Platelets, Giant PRESENT
--- NOTE | 2019-03-08 07:50 | EKG ---
Test Date: 2019-03-06 Test Time: 13:09:07 Axle Bearing Polisher: YUE MEASUREMENT RESULTS: Intervals: Rate: 79 PA: 148 QRSD: 90 QT: 394 QTc: 451 [place]: P: 55 PA: 148 QRS: 92 T: 68 INTERPRETIVE STATEMENTS: Normal sinus rhythm Rightward axis Septal infarct, age undetermined Abnormal ECG Compared to ECG 04/21/2018 17:12:22 Right-axis deviation now present Myocardial infarct finding now present Electronically Signed On 03-08-19 07:48:56 CDT by Clarke Mendez
== END 2019-03-06 15:22 | disposition home or self-care (01) ==
LOC: ER 12:56
DX: I10 Essential (primary) hypertension (principal); E11.9 Type 2 diabetes mellitus without complications; C18.9 Malignant neoplasm of colon, unspecified; C53.9 Malignant neoplasm of cervix uteri, unspecified; F17.210 Nicotine dependence, cigarettes, uncomplicated
CPT/HCPCS: 36415; 70450; 71045; 80048; 80076; 83735; 83880; 84484; 85025; 85610; 93005; 96374; 99284